=== PATIENT | male | born 1940 | race Caucasian/White ===

== ENCOUNTER 2017-09-17 10:19 | Inpatient (IN) | payer OTHER ==
[~2017-09-17] VITALS: Ht 177.8 cm; Wt 106.0 kg
[~2017-09-17 10:19] MED LIST: ASPI81TA27 PO; FOLI800T14 PO; LEVO25TA6 PO; MAGN400T5 PO; METO25TA62 PO; MULTTAB61 PO; NIFE30TA66 PO; ROSU20TA14 PO
[2017-09-17] MEDS ORDERED: BUPIVACAINE 0.25% INJ 50ML VIAL ONE (11:00)
[2017-09-17] MEDS ORDERED: LIDOCAINE 1% HCL (LOCAL ANESTH.) INJ 20ML MDV ONE (11:00)
[2017-09-17] MEDS ORDERED: fentaNYL CITRATE 100 MCG/2 ML VL ONE (11:05)
[2017-09-17] MEDS ORDERED: MIDAZOLAM HCL 1MG/1ML-2 ML VIAL ONE ×2 (11:05→15:42)
[2017-09-17] MEDS ORDERED: GLYCOPYRROLATE 0.2 MG/ML 1ML VIAL ONE (11:05)
[2017-09-17] MEDS ORDERED: PROPOFOL 10 MG/ML 20 ML IV ONE (11:05)
[2017-09-17] MEDS ORDERED: ROCURONIUM 10MG/ML 10ML VIAL IV ONE (11:05)
[2017-09-17] MEDS ORDERED: ceFAZolin 1GM/50ML 100 ML IV ONE (11:05)
[2017-09-17] MEDS ORDERED: NEOSTIGMINE 1 MG/ML INJ (10mg/10ML VIAL) ONE (11:05)
[2017-09-17] MEDS ORDERED: MORPHINE SULF(PF) 0.5MG/ML 10ML VIAL ONE (11:54)
[2017-09-17] MEDS ORDERED: TRANEXAMIC ACID 1,000 mg/10ml INJ VIAL ONE (11:54)
[2017-09-17] MEDS ORDERED: KETOROLAC TROMETH 30 MG/ML 1ML VIAL ONE (11:56)
[2017-09-17] MEDS ORDERED: VANCOMYCIN HCL 1000 MG VL ONE (11:56)
[2017-09-17] MEDS ORDERED: BUPIVACAINE W/ EPINEPH 0.25% INJ 50ML MDV ONE (11:59)
[2017-09-17] MEDS ORDERED: HYDROCORTISONE SOD SUCC 100 MG/2ML INJ VIAL ONE (12:44)
[2017-09-17] MEDS ORDERED: ACETAMINOPHEN 325 MG TAB PO PRN (15:00)
[2017-09-17] MEDS ORDERED: MORPHINE SULFATE 4 MG/ML SYR/VIAL IV PRN (15:00)
[2017-09-17] MEDS ORDERED: HYDROcodone-ACET 5/325MG TAB PO PRN (15:00)
[2017-09-17] MEDS ORDERED: HYDROmorphone HCL 2 MG/ML VL IV PRN (15:00)
[2017-09-17] MEDS ORDERED: NITROGLYCERIN 0.4 MG SL TAB SL PRN (15:00)
[2017-09-17] MEDS ORDERED: KETOROLAC TROMETH 30 MG/ML 1ML VIAL IV PRN (15:00)
[2017-09-17] MEDS ORDERED: hydrALAZINE HCL 20 MG/ML VL IV PRN (15:15)
[2017-09-17] MEDS ORDERED: ONDANSETRON HCL 4 MG/2 ML VIAL IV ONE (15:15)
[2017-09-17] MEDS ORDERED: ePHEDrine SULFATE 50 MG/ML AMP IV PRN (15:15)
[2017-09-17] MEDS: MORPHINE SULFATE 4 MG/ML SYR/VIAL IV PRN ×2 (15:28→15:38)
[2017-09-17] MEDS ORDERED: LIDOCAINE W/ EPINEPHRINE 2% INJ 20ML VIAL ONE (15:40)
[2017-09-17 17:00] VITALS: BP 149/79
[2017-09-17] MEDS ORDERED: COENCAP PO (18:03)
[2017-09-17] MEDS ORDERED: IMIP10TA2 PO (18:03)
[2017-09-17] MEDS: D5W/LACTATED RINGERS 1,000 ML IV SCH (18:50)
[2017-09-17] MEDS: ceFAZolin 1GM 2 GM in D5W 5% 100 ML IV SCH (18:50)
[2017-09-17] MEDS: oxyCODONE ER 10 MG TAB PO SCH (21:21)
[2017-09-17 22:00] VITALS: BP 115/72
[2017-09-17] MEDS ORDERED: ATORVASTATIN 20 MG TAB PO SCH (22:00)
[2017-09-18] MEDS: ceFAZolin 1GM 2 GM in D5W 5% 100 ML IV SCH ×2 (02:52→09:44)
[2017-09-18] MEDS: D5W/LACTATED RINGERS 1,000 ML IV SCH ×2 (02:59→09:47)
[2017-09-18 05:23] VITALS: BP 158/76
[2017-09-18] MEDS ORDERED: ASPirin 325 MG TAB PO ONE (06:00)
[2017-09-18 06:58] LABS: Basophils # (auto) 0 uL; Basophils % (auto) 0.2 % (0.0-2.0); Eosinophils # (auto) 0 uL; Eosinophils % (auto) 0.2 % (0.0-7.0); Hematocrit 36.4 % (41.0-53.0); Hemoglobin 12.2 g/dL (13.5-17.5); Lymphocytes # (auto) 0.9 uL; Lymphocytes % (auto) 8.9 % (10.0-50.0); Mean Corpuscular Hgb Conc. 33.5 g/dL (32.0-36.0); Mean Corpuscular Volume 95.5 fL (80.0-100.0); Monocytes # (auto) 1.1 uL; Monocytes % (auto) 10.7 % (0.0-12.0); Neutrophils # (auto) 8.5 uL; Platelet Count (auto) 182 10^3/uL (140-450); Red Blood Cells 3.81 10^6/uL (4.5-5.90); Red Cell Distribution Width 13.3 % (11.8-14.3); White Blood Cell 10.6 10^3/uL (4.4-10.8)
[2017-09-18] MEDS ORDERED: LEVOTHYROXINE SODIUM 25 MCG TAB PO SCH (07:00)
[2017-09-18 07:14] LABS: Calcium 8.8 mg/dL (8.5-10.1); Potassium 4.2 mmol/L (3.5-5.1)
[2017-09-18 07:16] LABS: BUN/Creatinine Ratio 12.6
[2017-09-18] MEDS ORDERED: ALUM & MAG HYDROX-SIMETH LIQ(MAALOX) 30 ML GT PRN (07:45)
[2017-09-18] MEDS ORDERED: THROAT LOZENGES(CEPASTAT) MT PRN (07:45)
[2017-09-18] MEDS ORDERED: ALUM & MAG HYDROX-SIMETH LIQ(MAALOX) 30 ML PO PRN (08:00)
[2017-09-18 08:17] VITALS: BP 143/83
[2017-09-18 09:00] VITALS: BP 143/83
[2017-09-18] MEDS: oxyCODONE ER 10 MG TAB PO SCH (09:44)
[2017-09-18] MEDS ORDERED: MAGNESIUM OXIDE 400 MG TAB PO SCH ×2 (10:00)
[2017-09-18] MEDS ORDERED: METOPROLOL SUCCINATE XL 50 MG TAB PO SCH (10:00)
[2017-09-18] MEDS ORDERED: FOLIC ACID 1 MG TAB PO SCH (10:00)
[2017-09-18] MEDS ORDERED: FAMOTIDINE 20 MG TAB PO SCH (10:00)
[2017-09-18] MEDS ORDERED: MULTIPLE VITAMIN TAB PO SCH (10:00)
== END 2017-09-18 12:20 | disposition home or self-care (01) | DRG 483 ==
LOC: SUR 10:19 → TELE-WESTW 10:20
PROVIDERS: ADMIT Orthopaedic Surgery Adult Reconstructive Orthopaedic Surgery; ATTEND Orthopaedic Surgery Adult Reconstructive Orthopaedic Surgery
PROC: 0LS40ZZ Reposition Left Upper Arm Tendon, Open Approach (ICD-10-PCS; 2017-09-17)
PROC: 0RRK00Z Replacement of Left Shoulder Joint with Reverse Ball and Socket Synthetic Substitute, Open Approach (ICD-10-PCS; principal; 2017-09-17 11:14)
DX: M13.812 Other specified arthritis, left shoulder (principal); I11.9 Hypertensive heart disease without heart failure; E03.9 Hypothyroidism, unspecified; Z96.612 Presence of left artificial shoulder joint; E78.00 Pure hypercholesterolemia, unspecified; F17.210 Nicotine dependence, cigarettes, uncomplicated; R33.9 Retention of urine, unspecified; Z80.9 Family history of malignant neoplasm, unspecified; Z82.49 Family history of ischemic heart disease and other diseases of the circulatory system
CPT/HCPCS: 36415; 73020; 80048; 83036; 85025; 86850; 86900; 86901; 97163; J0690; J1885; J2001; J2250; J2704; J3490; J7060